=== PATIENT | male | born 1950 | race Caucasian/White ===

== ENCOUNTER → 2019-07-06 | Outpatient (CLI) | payer BC, MEDICARE ==
--- NOTE | 2019-07-06 16:43 | PCVCIMAG ---
APPROVED REPORT Study performed: 07/06/2019 14:55:53 EXAM: Comprehensive 2D, Doppler, and color-flow Echocardiogram Patient Location: Echo lab Status: routine BSA: 1.95 HR: 58 bpmBP: 168/100 mmHg Rhythm: NSR,Bradycardia Other Information Study Quality: Adequate Risk Factors: Cardiac Risk Factors: HTN Indications Syncope Hypertension/HDD 2D Dimensions IVSd: 11.21 (7-11mm)LVOT Diam: 22.64 (18-24mm) LVDd: 50.06 mm PWd: 8.99 (7-11mm)Ascending Ao: 35.49 (22-36mm) LVDs: 30.08 (25-40mm) Left Atrium: 35.12 (27-40mm) Aortic Root: 26.65 mm LV Single Plane 4CH: 61.82 % LV Single Plane 2CH: 69.09 % Biplane EF: 65.1 % Volumes Left Atrial Volume (Systole) Single Plane 4CH: 69.62 mLSingle Plane 2CH: 80.23 mL Biplane LA Volume: 75.00 mLLA ESV Index: 38.00 mL/m2 Aortic Valve AoV Peak Ken.: 1.33 m/s AO Peak Gr.: 7.05 mmHgLVOT Max P.81 mmHg LVOT Max V: 1.04 m/s CHELO Vmax: 3.16 cm2 Mitral Valve E/A Ratio: 1.2 MV Decel. Time: 188.12 ms MV E Max Ken.: 0.71 m/s MV A Ken.: 0.58 m/s IVRT: 112.46 ms TDI E/Lateral E': 8.88E/Medial E': 11.83 Medial E' Ken.: 0.06 m/s Lateral E' Ken.: 0.08 m/s Pulmonary Valve PV Peak Ken.: 1.12 m/sPV Peak Gr.: 4.98 mmHg Pulmonary Vein P Vein S: 0.61 m/sP Vein A: 0.27 m/s P Vein D: 0.48 m/sP Vein A Dur.: 107.3 msec P Vein S/D Ratio: 1.27 Tricuspid Valve TR Peak Ken.: 1.38 m/s TR Peak Gr.: 7.58 mmHg TV Vmax: 0.66 m/sPA Pressure: 15.00 mmHg Left Ventricle The left ventricle is normal size. There is normal LV segmental wall motion. There is normal left ventricular wall thickness. Left ventricular systolic function is normal. The left ventricular ejection fraction is within the normal range. LVEF is 65%. Grade II - pseudonormal filling dynamics. Right Ventricle The right ventricle is normal size. The right ventricular systolic function is normal. Atria The left atrium size is normal. The right atrium size is normal. Aortic Valve Aortic valve is trileaflet. The aortic valve is normal in structure and function. No aortic regurgitation is present. There is no aortic valvular stenosis. Mitral Valve The mitral valve is normal in structure. There is no mitral valve regurgitation noted. No evidence of mitral valve stenosis. Tricuspid Valve The tricuspid valve is normal in structure. Trace tricuspid regurgitation with a PA pressure of 15 mmHg. No pulmonary hypertension. Pulmonic Valve The pulmonary valve is normal in structure. There is no pulmonic valvular regurgitation. Great Vessels The aortic root is normal in size. The ascending aorta is normal in size. IVC is normal in size and collapses >50% with inspiration. Pericardium There is no pericardial effusion. There is no pleural effusion. <Conclusion> Left ventricular systolic function is normal. There is normal LV segmental wall motion. LVEF is 65%. The aortic valve is normal in structure and function. The mitral valve is normal in structure. No mitral valve regurgitation. Trace tricuspid regurgitation with a pulmonary artery pressure of 15 mmHg. There is no pericardial effusion.
== END | disposition home or self-care (01) ==
LOC: PCVCIMAG 15:05
PROVIDERS: ATTEND Internal Medicine
DX: I10 Essential (primary) hypertension (principal); E78.5 Hyperlipidemia, unspecified; Z87.891 Personal history of nicotine dependence; Z72.89 Other problems related to lifestyle; Z79.899 Other long term (current) drug therapy
CPT/HCPCS: 93306